=== PATIENT | male | born 1950 | race African-American/Black ===

== ENCOUNTER 2022-12-18 20:26 | Emergency (ER) | payer OTHER ==
[~2022-12-18] VITALS: Ht 177.8 cm; Wt 86.0 kg
[2022-12-18] MEDS ORDERED: DILTIAZEM HCL 5MG/ML 5ML VIAL IV ONE ×2 (21:00→22:00)
[2022-12-18 21:25] LABS: CHLORIDE 99 mEq/L (98-107)
[2022-12-18 21:29] LABS: BASOPHILS % 0.4 % (0.0-2.0); EOSINOPHILS % 0.6 % (0.0-5.0); HEMATOCRIT. 39.1 % (42.0-52.0); HEMOGLOBIN. 13.3 g/dL (14.0-18.0); LYMPHOCYTES % 13.7 % (20.0-50.0); MEAN CORPUSCULAR HEMOGLOBIN 30.2 pg (28.0-32.0); MEAN CORPUSCULAR VOLUME 88.7 fL (80.0-94.0); MONOCYTES % 7.5 % (2.0-8.0); NEUTROPHILS % 77.8 % (40.0-76.0)
[2022-12-18 21:30] LABS: INR 1.3; PROTHROMBIN TIME 14.2 sec (9.6-11.0)
[2022-12-18 22:07] LABS: MEAN PLATELET VOLUME 10.9 fl (7.4-10.4); PLATELET 147 x1000/uL (130-400)
[2022-12-18 22:08] LABS: PLATELET ESTIMATE NORMAL
[2022-12-18] MEDS ORDERED: DILTIAZEM HCL 60MG TABLET PO ONE (22:45)
[2022-12-18] MEDS ORDERED: FUROSEMIDE 40MG/4ML VIAL IVP ONE (22:45)
[2022-12-18] MEDS ORDERED: KCL 20MEQ/100ML PREMIX 100 ML IV ONE (22:45)
[2022-12-18] MEDS ORDERED: DILTIAZEM HCL 125 MG in DEXT 5% WATER 100 ML IV ONE ×2 (23:00→23:15)
[2022-12-19 03:39] VITALS: BP 131/74
== END 2022-12-19 03:43 | disposition short-term general hospital (02) ==
LOC: ER 20:26
DX: I48.91 Unspecified atrial fibrillation (principal); I11.0 Hypertensive heart disease with heart failure; I50.9 Heart failure, unspecified; E87.6 Hypokalemia; Z20.822 Contact with and (suspected) exposure to COVID-19
CPT/HCPCS: 36415; 71045; 80053; 83880; 84484; 85025; 85610; 87426; 93005; 96365; 96375; 96376; 99291; C9803; J1940; J3480; J3490; J7060